=== PATIENT | male | born 1965 | race Caucasian/White ===

== ENCOUNTER 2024-02-10 10:12 | Day surgery (SDC) | payer OTHER ==
[~2024-02-10] VITALS: Ht 180.3 cm; Wt 112.9 kg
[~2024-02-10 10:12] MED LIST: ATEN50TA2 PO; ERGO500029 PO; IBUP80TA PO; LEVO200T4 PO; LEVO50TA5 PO; LISI20TA33 PO; METH-1164 PO
[2024-02-10] MEDS ORDERED: propofoL 200 MG/20 ML VIAL As Ordered ONE (13:11)
[2024-02-10 14:45] VITALS: BP 170/97; TEMP 97.4; O2SAT 97
== END 2024-02-10 14:50 | disposition home or self-care (01) ==
LOC: M OPP 10:12
PROVIDERS: ATTEND Surgery
DX: Z12.11 Encounter for screening for malignant neoplasm of colon (principal); K63.5 Polyp of colon; K57.30 Diverticulosis of large intestine without perforation or abscess without bleeding; F17.200 Nicotine dependence, unspecified, uncomplicated; E78.5 Hyperlipidemia, unspecified; E03.9 Hypothyroidism, unspecified; I10 Essential (primary) hypertension; Z79.1 Long term (current) use of non-steroidal anti-inflammatories (NSAID); Z79.890 Hormone replacement therapy